=== PATIENT | male | born 1985 | race Caucasian/White ===

== ENCOUNTER 2022-10-16 08:06 | Outpatient (CLI) | payer OTHER, SELFPAY ==
--- NOTE | 2022-10-16 08:15 | MR_ITS ---
[address] [address] Phone:?[phone] Fax:?[phone] Referring Physician Information: Suki Roldan [address] [facility] [address] Phone:?[phone] Fax:?[phone] Patient:?Molina Reyes D.O.B:?1985 Sex:?Male Phone:?[phone] [facility] MRN:?[id number] Exam Date:?10/16/2022 ? EXAM: MRI of the LEFT KNEE, without contrast CLINICAL HISTORY: Left knee pain. Evaluate the medial patellar femoral ligament and posterior cruciate ligament. COMPARISONS: Plain radiographs 10/03/2022 and 05/26/2018. TECHNICAL: MR sequences of the left knee: sagittals: PD, PDFS coronals: PD, STIR axials: PD, T2FS CONTRAST: None SEDATION: None FINDINGS: Bones: There is a nondisplaced fracture of the medial aspect of the patella best seen on axial series 4 image 16. There is bone marrow contusion of the peripheral and anterior portion of the lateral femoral condyle best seen on axial series 4 image 19. There is evidence of previous intramedullary osbaldo instrumentation within the imaged portion of the proximal left tibia with subsequent removal of the hardware. Patellofemoral joint: Cartilage: There is a 2.0 cm in craniocaudad dimension by 2.5 cm in transverse dimension area of full-thickness chondral injury/chondral loss over the median patellar ridge, adjacent portion of the lateral patellar facet, and over the medial patellar facet. Retinacula: There is ill-defined low-grade partial tear of the medial retinaculum/medial patellofemoral ligament involving the femoral attachment. The lateral retinaculum is intact. Fat pads: The infrapatellar, quadriceps, and prefemoral fat pads are unremarkable. The Insall Salvati index is within normal limits. The lateral trochlear inclination angle measures 6 degrees. The tibial tubercle to trochlear groove distance measures 2.7 cm. Knee joint: Effusion: Moderate left knee joint effusion. Popliteal cyst: A large perforated popliteal cyst contains a 0.9 x 0.8 x 0.8 cm loose body. Intra-articular bodies: There is a 3.3 x 2.2 x 0.6 cm low signal focus within the lateral patellofemoral recess that may represent an intra-articular body or hemarthrosis. There is a 1.2 x 0.9 x 0.8 cm intra-articular ossification abutting the peripheral aspect of the lateral femoral condyle deep to the iliotibial band best seen on coronal series 7 image 16. Posteromedial corner: The semimembranosus and pes anserine tendons are intact. Medial compartment: Medial meniscus: Intact. Cartilage: Intact. Lateral compartment: Lateral meniscus: There is partial thickness radial tear of the posterior horn of the lateral meniscus best seen on coronal series 5 image 22, ill-defined partial tearing of the posterior root of the lateral meniscus, and slight free edge fraying of the body of the lateral meniscus Cartilage: 1.5 x 1.5 cm area of full-thickness chondral loss over the posterior weightbearing portion of the lateral femoral condyle with associated central osteophytosis and extensive near full-thickness and full-thickness chondral loss over the central and posterior portions of the lateral tibial plateau. Ligaments: Anterior cruciate ligament: Intact. Posterior cruciate ligament: Intact. Medial collateral ligament: Intact. Posterior oblique ligament: Intact. Fibular collateral ligament: Intact. Posterolateral corner: The distal biceps femoris tendon, iliotibial band, popliteus tendon, popliteus muscle, popliteofibular ligament, and arcuate ligament are intact. Extensor mechanism: Patellar tendon: Intact. Quadriceps tendon: Intact. IMPRESSION: 1. Sequelae of transient lateral dislocation injury include nondisplaced fracture of the medial aspect of the patella, bone marrow contusion of the peripheral and anterior portion of the lateral femoral condyle, and ill-defined low-grade partial tear of the medial retinaculum/medial patellofemoral ligament involving the femoral attachment. 2. Associated 2.0 x 2.5 cm area of full-thickness chondral injury/chondral loss over the median patellar ridge, adjacent portion of the lateral patellar facet, and over the medial patellar facet. A 3.3 x 2.6 x 0.6 cm low signal focus within the lateral patellofemoral recess may represent an intra-articular body or hemarthrosis. 1.2 x 0.9 x 0.8 cm intra-articular ossification abutting the peripheral aspect of the lateral femoral condyle. A large perforated popliteal cyst contains a 0.9 x 0.8 x 0.8 cm loose body. 3. 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 The tibial tubercle to trochlear groove distance measures 2.7 cm. 4. Partial thickness radial tear of the posterior horn of the lateral meniscus, ill-defined partial tearing of the posterior root of the lateral meniscus, and slight free edge fraying of the body of the lateral meniscus. 5. 1.5 x 1.5 cm area of full-thickness chondral loss over the posterior weightbearing portion of the lateral femoral condyle with associated central osteophytosis and extensive near full-thickness and full-thickness chondral loss over the central and posterior portions of the lateral tibial plateau. 6. Moderate left knee joint effusion. 7. No medial meniscal tear or cruciate or collateral ligament injury of the left knee. RCB Electronically signed on 10/16/2022 1:15:00 PM by Aguila Griffin M.D.
== END 2022-10-16 08:07 | disposition home or self-care (01) ==
LOC: MRI 08:08
PROVIDERS: Visit Provider Physician Assistant
DX: M25.562 Pain in left knee (principal); S83.015A Lateral dislocation of left patella, initial encounter; M71.22 Synovial cyst of popliteal space [Baker], left knee; M23.252 Derangement of posterior horn of lateral meniscus due to old tear or injury, left knee; M25.462 Effusion, left knee
CPT/HCPCS: 73721

== ENCOUNTER 2023-01-28 06:25 | Day surgery (SDC) | payer OTHER, SELFPAY ==
[2023-01-28] VITALS (25 sets, daily range): BP systolic 113–160; BP diastolic 64–94; PULSE 51–69; RESP 16–24; TEMP 36.1–36.7; O2SAT 94–100; BMI 35.4
--- NOTE | 2023-01-28 06:59 | W.ANESCHARGE ---
Anesthesia Charges Start Date/Time Anesthesia Start Date: 01/28/23 Anesthesia Start Time: 07:49 Stop Date/Time Anesthesia Stop Date: 01/28/23 Anesthesia Stop Time: 09:56
[2023-01-28] MEDS: SODIUM CHLORIDE 0.9 % (FLUSH) 10 ML SYRINGE IVF (07:00)
[2023-01-28] MEDS: LACTATED RINGERS 1000 ML 1,000 ML 100 ML IV (07:00)
--- NOTE | 2023-01-28 07:00 | SUR.PREOP ---
Patient provided home covid negative results to RN.
--- NOTE | 2023-01-28 07:31 | SUR.PREOP ---
TIME?OUT:?0732 PT/RN/MDA?VERIFICATION?OF?SURGICAL?SITE,?PROCEDURE,?AND?CONSENT OBTAINED?PRIOR?TO?INVASIVE?PROCEDURE.
[2023-01-28] MEDS: fentaNYL 100 MCG/2 ML inj IVP (07:33)
[2023-01-28] MEDS: MIDAZOLAM HCL 1 MG/ML inj IVP (07:33)
[2023-01-28] MEDS: CEFAZOLIN 2 GM in 0.9 % SODIUM CHLORIDE Mini-bag 100 ML IVPB (07:55)
--- NOTE | 2023-01-28 08:15 | CRLHL7_ITS ---
For Patients: As a result of the Cures Act, medical imaging exams and procedure reports are released immediately into your electronic medical record. You may view this report before your referring provider. If you have questions, please contact your health care provider. Indication: Patellofemoral LIGAMENT RECONSTRUCTION EXAM Technique: Two fluoroscopic images of the left knee. Fluoroscopic time 18.2 seconds. IMPRESSION: Fluoroscopic guidance for ligament reconstruction. Dictated by Anthony Dimas MD @ 01/28/2023 11:50:40 AM (Electronically Signed)
--- NOTE | 2023-01-28 08:37 | SUR.OPER ---
PATIENT QUESTIONS ANSWERED SATISFACTORILY PREOPERATIVELY.? PATIENT BROUGHT TO OR #3 PER CART AFTER ADMINISTRATION OF A BLOCK.? Patient positioned supine on OR #3 bed.? The perioperative?team supported arms bilaterally on arm boards.? Final approval of positioning by surgeon.?
--- NOTE | 2023-01-28 09:50 | P.ORPRC_ITS ---
Procedure Note Date of procedure: 01/28/23 Procedure: PREOPERATIVE DIAGNOSIS: 1. Left knee patellar lateral dislocation with full-thickness patellar chondral defect, acute 2. Left knee medial patellofemoral ligament disruption confirmed on MRI, acute 3. Left knee loose body-likely patellar chondral defect cartilage, acute POSTOPERATIVE DIAGNOSIS: 1. Left knee patellar lateral dislocation with full-thickness patellar chondral defect, acute 2. Left knee medial patellofemoral ligament disruption confirmed on MRI, acute 3. Left knee loose body-likely patellar chondral defect cartilage, acute 4. Left knee Complex tear posterior horn lateral meniscus 5. 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 Left knee extra-articular ligament reconstruction-MPFL 2. Left knee arthroscopy with abrasion arthroplasty and microfracture of both full-thickness patellar defect in lateral femoral condylar defect 3. Left knee arthroscopic loose body removal which required enlargement of the medial portal to retrieve this 12 mm loose body 4. Left knee arthroscopic partial lateral meniscectomy. 5. Left knee arthroscopic chondroplasty patellofemoral compartment 6. [address]5041 - intraoperative fluoroscopy up to 1 hour. SURGEON: Igor Justice M.D. DELINQUENCY COUNSELOR: Randi Boucher; Mitchell Mina PA-C. Of note, a skilled it administrative assistant was critical for this case to aid in patient positioning, knee manipulation, instrument exchange, tissue retraction, patient safety, skill to manipulate arthroscopic instruments and camera, brace application, and closure. ANESTHESIA: Spinal plus femoral nerve block EBL: Less than 2 mL TOURNIQUET: 60 min at 300 torr IMPLANTS: Arthrex 3.9 mm BioComposite SwiveLock suture anchor (x2) for patellar MPFL graft fixation; Arthrex 6 x 23 mm BioComposite interference screw (for femoral fixation of MPFL graft). Anterior tibialis allograft (split down from 6.5 mm to approximately 5 mm in diameter). COMPLICATIONS: None evident INDICATIONS: The patient is a pleasant 37-year-old male. They sustained an injury recently from patellar dislocation. Workup included x-rays and MRI. The MRI revealed a loose body resting in the lateral gutter. This appeared to come from the patellar medial facet. In addition to this structural pathology, the patient continued to have patellar instability sensation and nonoperative management was unsuccessful. Therefore, surgery was indicated. FINDINGS: Exam under anesthesia revealed negative Herberth's. Negative posterior drawer. Crepitation with knee range of motion. Stable varus, valgus stress at 0 and 30?. Diagnostic arthroscopy revealed an 18 mm loose body in the greatest dimension resting in the lateral gutter. There is also bony fragment adherent to the retropatellar fat pad near the inferior pole of the patella. These were both excised. Grade 3-4 chondromalacia was seen in the patella medial facet. Finally, a complex tearing of the posterior horn lateral meniscus was noted approaching the posterior root. The posterior root was still intact. DESCRIPTION OF PROCEDURE: After a thorough discussion of risks, benefits, and alternatives, the patient was brought to the operating room and placed upon the operating table. Induction of anesthesia was undertaken as previously noted. 3 g IV Ancef was administered within 1 hr of incision preoperatively. Appropriate time-out was performed identifying proper patient, site, and procedure. The left lower extremity was prepped and draped in the appropriate sterile fashion using ChloraPrep. The limb was exsanguinated and tourniquet inflated. Anterolateral and anteromedial portals were established with an 11 blade, and a diagnostic arthroscopy was performed. This identified the findings as noted above. Following the diagnostic arthroscopy, the loose body was encountered, and retrieved with pituitary rongeur and removed. Basket forceps and torpedo shaver also utilized for partial lateral meniscectomy. Approximately 20-25% of the lateral meniscus to require resection (posterior horn approaching midbody). This shaver was also utilized for chondroplasty of the unstable chondral fragments of the patella. At this stage, we made an incision longitudinally just medial to the midline of the anterior skin. Start sharp incision through skin and blunt dissection through subcutaneous tissue allowed us to identify the deep retinaculum. Initially, we made our approach for where the MPFL graft would lay. This was deep to the retinacular tissue but superficial to the capsule itself. After developing this plane, down to the medial femoral epicondyle/adductor tubercle region, a suture was placed for later passage of the graft. The allograft was prepared on the back table utilizing 2-0 Fiber loop in a locking fashion on either end. Once establishing the graft preparation, we then drilled our patellar guide pins aiming for the proximal 3rd to mid portion of the medial patella. Guide pins were confirmed on C-arm to be extra-articular. We then over-reamed the guide pins with the appropriate Reamer, and the associated swivel locks were then placed with the graft tails dunked into these tunnels. Excellent security of these swivel locks was achieved. The loop end of the graft was passed with a passing suture through the previously dissected plane superficial to the joint capsule but deep to the retinaculum. This was passed toward the medial femoral epicondylar/adductor tubercle region. We made an incision in this location to help us visualize the medial femoral adductor tubercle region. Our guide pin was then placed with C-arm fluoroscopic imaging utilizing a perfect lateral image of the distal femur to help us ideally track the MPFL femoral attachment. After confirming proper placement utilizing the Arthrex guide, we then drilled a Beath pin through the lateral femoral cortex aiming slightly anterior and proximal. Suture passage was then placed allowing us to pull through the sutures that were on the looped end of the graft. The graft was then dunked into the femoral condyle and secured with the BioComposite interference screw. This was placed over Nitinol wire which maintained our same trajectory and confirmed us to be intraosseous. C-arm again confirmed our drive shaft to be in the proper trajectory. Of note, the lateral border of the patella was held against the lateral femoral condyle cautiously with the knee at 30? of flexion during tensioning of the MPFL and during imbrication of the medial retinaculum. Thus, after securing the MPFL itself, the 2-0 FiberWire sutures were passed through the retinaculum to help imbricate this tissue again with the patella held in this same position. The remaining wound was thoroughly irrigated normal saline. Finally, remaining closure was performed with 2-0 Vicryl and 4-0 Monocryl for tena bcutaneous and subcuticular closures, respectively. Dressings were applied, tourniquet was deflated, and the patient awoken from anesthesia/transferred to the PACU in stable condition. A skilled it administrative assistant was critical for this case to aid in patient positioning, knee manipulation, instrument exchange, tissue retraction, patient safety, skill to manipulate arthroscopic instruments and camera, brace application, and closure. PLAN: 1. Weightbear as tolerated operative extremity with the brace locked in extension. Crutch / walker ambulation assistance PRN. 2. Ice, acetominophen and/or ibuprofen, and Percocet for pain as needed. 3. Knee range of motion as tolerated. 4. Follow up with PA visit in 1-2 weeks for a wound check.
--- NOTE | 2023-01-28 09:56 | P.NB_ITS ---
Nerve Block Nerve Block Time Seen by Provider: 07:37 Date Seen: 01/28/23 Type of block requested by surgeon for post-operative analgesia: geniculars Side: left Time out performed: Yes Verification of patient name: Yes Verification of date of : Yes Site marking: site marked Name of person performing procedure: Ish Continuous monitoring Was continuous monitoring of O2 sat, B/P, quality assurance monitor chassis, recorded every 15 minutes?: Yes Procedure Checklist: sterile prep, needles and gloves Medications given in 5ml increments after negative aspiration: Ropivicaine %: 0.5 mL: 9 Needle gauge: 25 Patient tolerated procedure well: Yes Block Charges Block Charge (with Pro Fee): Genicular Nerve Block Use of Ultrasound Machine for Block: No
--- NOTE | 2023-01-28 09:56 | P.NB_ITS ---
Nerve Block Nerve Block Time Seen by Provider: 07:37 Date Seen: 01/28/23 Type of block requested by surgeon for post-operative analgesia: adductor canal Side: left Time out performed: Yes Verification of patient name: Yes Verification of date of : Yes Site marking: site marked Name of person performing procedure: Ish Continuous monitoring Was continuous monitoring of O2 sat, B/P, monitor car operator, recorded every 15 minutes?: Yes Procedure Checklist: sterile prep, needles and gloves Ultrasound guided. Images saved: Yes Medications given in 5ml increments after negative aspiration: Ropivicaine %: 0.5 mL: 20 Needle gauge: 20 Decadron (mg): 10 Precedex (mcg): 25 Patient tolerated procedure well: Yes Additional comments: Needle noted adjacent to nerve Block Charges Block Charge (with Pro Fee): Femoral Nerve Use of Ultrasound Machine for Block: Yes- US Guidance/pain block
== END 2023-01-28 12:00 | disposition home or self-care (01) ==
PROVIDERS: PCP Family Medicine; Visit Provider Orthopaedic Surgery Sports Medicine
PROC: (CPT 27427; principal; 2023-01-28 07:45)
PROC: (CPT 27428; 2023-01-28 07:45)
PROC: (CPT 29870; 2023-01-28 07:45)
DX: S83.015A Lateral dislocation of left patella, initial encounter (principal); S76.112A Strain of left quadriceps muscle, fascia and tendon, initial encounter; S83.272A Complex tear of lateral meniscus, current injury, left knee, initial encounter; M22.42 Chondromalacia patellae, left knee; M23.42 Loose body in knee, left knee
CPT/HCPCS: 29881; 29879; 27427; 01400; 64447; 64454; 73560; 76942; C1713; C1762; J0690; J1100; J2250; J2405; J2704; J2795; J3010; J7120; L1833

== ENCOUNTER 2023-04-19 08:15 | Outpatient (RCR) | payer OTHER, SELFPAY | END 2023-07-09 11:08 | disposition home or self-care (01) | PROVIDERS: PCP Family Medicine; Visit Provider Physician Assistant Surgical | DX: Z98.890 Other specified postprocedural states (principal); Z51.89 Encounter for other specified aftercare; M25.562 Pain in left knee; M62.552 Muscle wasting and atrophy, not elsewhere classified, left thigh | CPT/HCPCS: 97110; 97140; 97161 ==